=== PATIENT | male | born 1955 | race Caucasian/White ===

== ENCOUNTER → 2017-01-21 | Outpatient (CLI) | payer BC | LOC: FCPNEURO 20:00 | PROVIDERS: ATTEND Psychiatry & Neurology Sleep Medicine | DX: G47.33 Obstructive sleep apnea (adult) (pediatric) (principal); G47.61 Periodic limb movement disorder ==

== ENCOUNTER 2017-09-10 10:54 | Emergency (ER) | payer BC ==
[2017-09-10 11:00] VITALS: TEMP 98.4
--- NOTE | 2017-09-10 11:24 | CPEKG ---
Heart Rate: 68 RR Interval: 882 P-R Interval: 172 QRSD Interval: 92 QT Interval: 392 QTC Interval: 417 P Florence: 30 QRS Florence: -19 T Wave Florence: 37 EKG Severity - OTHERWISE NORMAL ECG - EKG Impression: SINUS RHYTHM EKG Impression: BORDERLINE LEFT AXIS DEVIATION Electronically Signed By: Yasmin Renee 10-Sep-2017 14:18:12
[2017-09-10] MEDS ORDERED: NS 500 ML IV ONE (11:39)
[2017-09-10 11:49] LABS: PLATELET COUNT 228 10^3/uL (150-400)
[2017-09-10 11:51] LABS: CREATINE KINASE 266 IU/L (0-224)
[2017-09-10 12:19] LABS: INR 1.06 (0.83-1.16)
--- NOTE | 2017-09-10 12:42 | EDPHY ---
H & P Time Seen by Provider: 09/10/17 11:39 HPI/ROS: HPI Fatigue, lethargy. 62-year-old male by private vehicle with family. This patient reports that he has chronic knee pain and has had a knee replacement. For this he takes a long- acting narcotic pain medication called Nucynta. He reports that he had some knee pain last night. He took a Nucynta last night at approximately 5:30 p.m.. He reports that he woke this morning and felt more fatigued than usual. He reports that he went to work. He took 2 Aleve at 11:00 a.m.. He reports that since this time he is felt very fatigued and foggy in his head which she describes as slow thinking. He denies any other associated signs or symptoms. ROS: Constitutional: No fever, no chills. As above. Eyes: No changes in vision. ENT: No sore throat. No nasal congestion or rhinorrhea. Respiratory: No cough. No shortness of breath. Cardiac: No chest pain, no palpitations. Gastrointestinal: No abdominal pain, no vomiting, no diarrhea. Genitourinary: No hematuria. No dysuria or increased frequency with urination. Musculoskeletal: No back pain. No neck pain. No myalgias or arthralgias. Skin: No rashes. Neurological: No headache. No focal weakness or altered sensation. Past medical history: Bronchitis, lower extremity edema, COPD, osteoarthritis, left knee replacement, cholecystectomy, chronic leg pain. Social history: Former smoker. Denies alcohol. Here with family. As above. Physical Exam: General Appearance: Alert, no distress. Moderately obese. This patient is responding to questions appropriately and in full sentences. This patient appears well-hydrated and well-nourished. Eyes: Pupils equal and round no pallor or injection. No lid edema, erythema or injection. ENT, Mouth: Mucous membranes are moist. The pharyngeal tissues are unremarkable. No edema or swelling. No asymmetry suggestive of abscess. No erythema or exudates. Respiratory: There are no retractions, lungs are clear to auscultation with good air movement bilaterally. No tachypnea. Cardiovascular: Regular rate and rhythm. No murmur. Gastrointestinal: Obese habitus. Abdomen is soft and nontender, no masses, bowel sounds normal. No focal tenderness at McBurney's point. No Kim sign. Neurological: Motor sensory function is grossly intact. Cranial nerves are normal. Gait is normal. Skin: Warm and dry, no rashes. Musculoskeletal: Neck is supple and nontender. No pain on flexion of his neck. Extremities are symmetrical. All joints range without pain or impingement. Psychiatric: No agitation. No depression. Database: EKG: EKG time is 11:17 a.m.; EKG shows a narrow complex normal sinus rhythm with a ventricular rate of 68. The NM, QRS, QT intervals are within normal limits. There are no ST-T wave changes indicative of ischemic or injury pattern. No evidence of right heart strain. Interpreted by me. Imaging: Chest x-ray PA and lateral; the cardiac mediastinal silhouette is unremarkable. Grossly stable reticular nodular opacities. No evidence of infiltrate or pneumothorax. No acute cardiopulmonary disease process noted. Interpreted by me. Procedures: Emergency department course: Vital signs reviewed and are normal. Patient is afebrile. EKG obtained and reviewed by myself. 2:00 p.m., patient re-evaluated. Resting comfortably at this time. States he feels better. His emergency department workup has been unremarkable. I reviewed the differential with him and his family. At this time I feel that he most likely had a medication reaction to his long-acting opiate pain medication. I also asked him was possible he took 1 dose for got that he took it and then took another dose. He said that this was a possibility. He has been up and ambulatory to the bathroom without difficulty and with a normal gait. He does feel comfortable going home with his family at this time. I feel he is safe for discharge. I stressed the importance of returning to the emergency department immediately if his symptoms return or he has any serious concerns. I discussed follow-up with his primary care physician. All of his questions were answered. He was discharged in good condition. Differential Diagnosis: The differential diagnosis on this patient includes but is not limited to medication reaction to long-acting narcotic pain medication, viral syndrome, influenza. Congestive heart failure exacerbation, acute coronary syndrome, CVA unlikely. This represents a partial list of diagnoses considered. These considerations are based on history, physical exam, past history, reassessment and diagnostic testing. Smoking Status: Former smoker Constitutional: Initial Vital Signs Temperature (C) 36.9 C 09/10/17 10:56 Heart Rate 84 09/10/17 10:56 Respiratory Rate 18 09/10/17 10:56 Blood Pressure 134/88 H 09/10/17 10:56 O2 Sat (%) 97 09/10/17 10:56 O2 Delivery Mode Room Air Allergies/Adverse Reactions: codeine [Codeine] Allergy (Mild, Verified 09/10/17 10:56) hydrocodone [Hydrocodone] Allergy (Verified 09/10/17 10:56) morphine [Morphine] Allergy (Verified 09/10/17 10:56) oxycodone [Oxycodone] Allergy (Verified 09/10/17 10:56) Home Medications: Medication Instructions Recorded Tapentadol HCl [Nucynta 50 MG (RX)] 50 mg PO Q4-6PRN PRN #20 tab 08/28/14 Medical Decision Making - Diagnostics Imaging Results: Imaging Impressions Chest X-Ray 09/10/17 11:40 Impression: 1. No acute findings in the chest. 2. Grossly stable reticular nodular opacities, with limited assessment of nodules seen better on the comparison CT chest. 3. Additional findings as above. - Data Points Laboratory Results: Laboratory Results 09/10/17 11:18 09/10/17 11:18 09/10/17 09/10/17 09/10/17 13:25 12:40 12:00 WBC RBC Hgb Hct MCV MCH MCHC RDW Plt Count MPV Neut % (Auto) Lymph % (Auto) [place] % (Auto) Eos % (Auto) Baso % (Auto) Nucleat RBC Rel Count Absolute Neuts (auto) Absolute Lymphs (auto) Absolute Monos (auto) Absolute Eos (auto) Absolute Basos (auto) Absolute Nucleated RBC Immature Gran % Immature Gran # PT 14.0 SEC SEC (12.0-15.0) INR 1.06 (0.83-1.16) APTT 28.7 SEC SEC (23.0-38.0) D-Dimer 0.38 ug/mLFEU ug/mLFEU (0.00-0.50) Carboxyhemoglobin 2.0 % H % (0-1.5) Sodium Potassium Chloride Carbon Dioxide Anion Gap BUN Creatinine Estimated GFR Glucose Calcium Creatine Kinase CK-MB (CK-2) Fraction CK-MB (CK-2) % Creatine Kinase Interp Troponin I NT-Pro-B Natriuret Pep Nasal Influenza A PCR NEGATIVE FOR FLU A (NEGATIVE) Nasal Influenza B PCR NEGATIVE FOR FLU B (NEGATIVE) 09/10/17 09/10/17 11:18 11:18 WBC 6.54 10^3/uL 10^3/uL (3.80-9.50) RBC 4.95 10^6/uL 10^6/uL (4.40-6.38) Hgb 14.3 g/dL g/dL (13.7-17.5) Hct 41.6 % % (40.0-51.0) MCV 84.0 fL fL (81.5-99.8) MCH 28.9 pg pg (27.9-34.1) MCHC 34.4 g/dL g/dL (32.4-36.7) RDW 13.6 % % (11.5-15.2) Plt Count 228 10^3/uL 10^3/uL (150-400) MPV 8.2 fL L fL (8.7-11.7) Neut % (Auto) 66.5 % % (39.3-74.2) Lymph % (Auto) 17.4 % % (15.0-45.0) [place] % (Auto) 12.2 % % (4.5-13.0) Eos % (Auto) 3.1 % % (0.6-7.6) Baso % (Auto) 0.5 % % (0.3-1.7) Nucleat RBC Rel Count 0.0 % % (0.0-0.2) Absolute Neuts (auto) 4.35 10^3/uL 10^3/uL (1.70-6.50) Absolute Lymphs (auto) 1.14 10^3/uL 10^3/uL (1.00-3.00) Absolute Monos (auto) 0.80 10^3/uL 10^3/uL (0.30-0.80) Absolute Eos (auto) 0.20 10^3/uL 10^3/uL (0.03-0.40) Absolute Basos (auto) 0.03 10^3/uL 10^3/uL (0.02-0.10) Absolute Nucleated RBC 0.00 10^3/uL 10^3/uL (0-0.01) Immature Gran % 0.3 % % (0.0-1.1) Immature Gran # 0.02 10^3/uL 10^3/uL (0.00-0.10) PT INR APTT D-Dimer Carboxyhemoglobin Sodium 142 mEq/L mEq/L (135-145) Potassium 4.4 mEq/L mEq/L (3.5-5.2) Chloride 102 mEq/L mEq/L (97-110) Carbon Dioxide 26 mEq/l mEq/l (22-31) Anion Gap 14 mEq/L mEq/L (8-16) BUN 15 mg/dL mg/dL (7-23) Creatinine 1.2 mg/dL mg/dL (0.7-1.3) Estimated GFR > 60 Glucose 94 mg/dL mg/dL (70-100) Calcium 10.5 mg/dL H mg/dL (8.5-10.4) Creatine Kinase 266 IU/L H IU/L (0-224) CK-MB (CK-2) Fraction 2.63 ng/mL ng/mL (0.00-3.19) CK-MB (CK-2) % 1.0 % % (0.0-4.0) Creatine Kinase Interp NEGATIVE (NEGATIVE) Troponin I < 0.012 ng/mL ng/mL (0.000-0.034) NT-Pro-B Natriuret Pep 46 pg/mL pg/mL (0-125) Nasal Influenza A PCR Nasal Influenza B PCR Medications Given: Discontinued Medications Sodium Chloride (Ns) 500 mls @ 1,000 mls/hr IV EDNOW ONE PRN Reason: Protocol Stop: 09/10/17 12:08 Last Admin: 09/10/17 12:03 Dose: 500 mls Departure - Departure Disposition: Home, Routine, Self-Care Clinical Impression: Fatigue, Possible medication reaction Condition: Good Instructions: Narcotic Pain Management (ED), Fatigue (ED) Additional Instructions: Read and follow provided instructions. Follow-up with your primary care physician within 1-2 days for re-evaluation as discussed. Take your medication as prescribed. Return to the emergency department immediately for worsening symptoms, worsening fatigue, headache, loss of sensation or weakness in your extremities, fever, difficulty breathing or other serious concerns. Referrals: Vicente Tovar, [Primary Care Provider] - As per Instructions
[2017-09-10 14:30] VITALS: BP 131/89; PULSE 77; RESP 16; O2SAT 94
== END 2017-09-10 14:33 | disposition home or self-care (01) ==
DX: R53.83 Other fatigue (principal); J44.9 Chronic obstructive pulmonary disease, unspecified; E86.9 Volume depletion, unspecified; Z87.891 Personal history of nicotine dependence

== ENCOUNTER 2018-01-06 13:21 | Emergency (ER) | payer BC ==
[2018-01-06] MEDS ORDERED: methylPREDNISolone SOD SUCC 125 MG/2 ML VIAL IVP ONE (15:02)
[2018-01-06] MEDS ORDERED: DIAZEPAM 5 MG/ML 1 ML SYR IVP ONE (15:02)
--- NOTE | 2018-01-06 15:06 | EDPHY ---
H & P Stated Complaint: months of chronic back pain/increasing lately/missing work Time Seen by Provider: 01/06/18 14:56 HPI/ROS: CHIEF COMPLAINT: Low back pain HISTORY OF PRESENT ILLNESS: The patient is a 62-year-old obese man who comes to the emergency department complaining of progressively worse low back pain over the last month. He states that he is now missing work. He states that he has numbness in his feet if he sits too long and that improves when he stands up and walks. He points to his lower thoracic/upper lumbar spine as the area of pain. He states that he has chronic back problems but he felt a pop about a month ago and has had severe pain ever since. He presented to his primary Dr. Tovar who recommended acupuncture but he has not been able to do so yet. He has been taking Aleve at home with moderate improvement. No fevers. REVIEW OF SYSTEMS: Constitutional: denies: chills, fever, recent illness, recent injury EENTM: denies: blurred vision, double vision, nose congestion Respiratory: denies: cough, shortness of breath Cardiac: denies: chest pain, irregular heart rate, lightheadedness, palpitations Gastrointestinal/Abdominal: denies: abdominal pain, diarrhea, nausea, vomiting, blood streaked stools Genitourinary: denies: dysuria, frequency, hematuria, pain Musculoskeletal: denies: joint pain, muscle pain Skin: denies: lesions, rash, jaundice, bruising Neurological: denies: headache, numbness, paresthesia, tingling, dizziness, weakness Hematologic/Lymphatic: denies: blood clots, easy bleeding, easy bruising Immunologic/allergic: denies: HIV/AIDS, transplant EXAM: GENERAL: Well-appearing, well-nourished and in no acute distress. HEAD: Atraumatic, normocephalic. EYES: Pupils equal round and reactive to light, extraocular movements intact, sclera anicteric, conjunctiva are normal. ENT: TMs normal, nares patent, oropharynx clear without exudates. Moist mucous membranes. NECK: Normal range of motion, supple without lymphadenopathy or JVD. LUNGS: Breath sounds clear to auscultation bilaterally and equal. No wheezes rales or rhonchi. HEART: Regular rate and rhythm without murmurs, rubs or gallops. ABDOMEN: Soft, nontender, normoactive bowel sounds. No guarding, no rebound. No masses appreciated. BACK: Lower thoracic, upper lumbar pain and tenderness, no deformities or step- offs. No CVA tenderness, EXTREMITIES: Normal range of motion, no pitting or edema. No clubbing or cyanosis. Normal pulses NEUROLOGICAL: Cranial nerves II through XII grossly intact. Normal speech, normal gait. 5/5 strength, normal movement in all extremities, normal sensation when objectively tested. Complains of numbness in his feet when sitting too long. PSYCH: Normal mood, normal affect. SKIN: Warm, dry, normal turgor, no visible rashes or lesions. Source: Patient Exam Limitations: No limitations - Personal History Current Tetanus/Diphtheria Vaccine: Yes - Medical/Surgical History Hx Asthma: No Hx Chronic Respiratory Disease: Yes Hx Diabetes: No Hx Cardiac Disease: No Hx Renal Disease: No Hx Cirrhosis: No Hx Alcoholism: No Hx HIV/AIDS: No Hx Splenectomy or Spleen Trauma: No Other PMH: bronchitis, edema, COPD,JIMENA. left knee replacement, fariha. chronic leg pain. back problems - Family History Significant Family History: No pertinent family hx - Social History Smoking Status: Former smoker Alcohol Use: Sober Drug Use: None Constitutional: Initial Vital Signs Temperature (C) 37 C 01/06/18 13:26 Heart Rate 79 01/06/18 13:26 Respiratory Rate 18 01/06/18 13:26 Blood Pressure 152/86 H 01/06/18 13:26 O2 Sat (%) 99 01/06/18 13:26 O2 Delivery Mode Room Air Allergies/Adverse Reactions: codeine [Codeine] Allergy (Mild, Verified 01/06/18 13:25) hydrocodone [Hydrocodone] Allergy (Verified 01/06/18 13:25) morphine [Morphine] Allergy (Verified 01/06/18 13:25) oxycodone [Oxycodone] Allergy (Verified 01/06/18 13:25) Home Medications: Medication Instructions Recorded Tapentadol HCl [Nucynta 50 MG (RX)] 50 mg PO Q4-6PRN PRN #20 tab 08/28/14 Aleve 01/06/18 Diazepam [Valium 5 MG (*)] 5 mg PO TID PRN #15 tab 01/06/18 methylPREDNISolone [Medrol Dose 1 each PO AD #1 ea 01/06/18 Campos] Medical Decision Making - Diagnostics Imaging: Discussed imaging studies w/ bilingual call center representative Radiologist ED Course/Re-evaluation: 5:50 p.m. we discussed the MRI results. The patient is relieved. He is feeling much better after Valium. I will discharge him with a Solu-Medrol pack and p.r.n. Valium. He is also asking for a note for work. We will refer him to back specialist. Differential Diagnosis: Partial list of the Differential diagnosis considered include but were not limited to; muscle strain, radiculopathy, degenerative disc disease and although unlikely based on the history and physical exam, I also considered cord compression, infection, hematoma, transverse myelitis. I discussed these differential diagnoses and the plan with the patient as well as the usual and expected course. The patient understands that the diagnosis is provisional and that in medicine we are not always correct and that further workup is often warranted. Usual and customary warnings were given. All of the patient's questions were answered. The patient was instructed to return to the emergency department should the symptoms at all worsen or return, otherwise to followup with the physician as we discussed. - Data Points Medications Given: Discontinued Medications Diazepam (Valium) 5 mg IVP EDNOW ONE Stop: 01/06/18 15:03 Last Admin: 01/06/18 15:12 Dose: 5 mg Methylprednisolone Sodium Succinate (Solu-Medrol) 125 mg IVP EDNOW ONE Stop: 01/06/18 15:03 Last Admin: 01/06/18 15:12 Dose: 125 mg Departure - Departure Disposition: Home, Routine, Self-Care Clinical Impression: Low back pain Qualifiers: Chronicity: acute Back pain laterality: midline Sciatica presence: without sciatica Qualified Code(s): M54.5 - Low back pain Condition: Fair Instructions: Acute Low Back Pain (ED) Referrals: Vicente Tovar DO [Primary Care Provider] - As per Instructions Migel Basurto MD [Medical Doctor] - As per Instructions Stand Alone Forms: Work Excuse Prescriptions: Diazepam [Valium 5 MG (*)] 5 mg PO TID PRN #15 tab PRN Reason: Spasms methylPREDNISolone [Medrol Dose Campos] 1 each PO AD #1 ea
[2018-01-06 18:04] VITALS: BP 130/82
== END 2018-01-06 18:31 | disposition home or self-care (01) ==
DX: M54.5 Low back pain (principal); J44.9 Chronic obstructive pulmonary disease, unspecified; Z87.891 Personal history of nicotine dependence
CPT/HCPCS: 96374; J2930; J3360

== ENCOUNTER 2018-04-22 11:50 | Emergency (ER) | payer BC ==
[2018-04-22 12:11] LABS: PLATELET COUNT 230 10^3/uL (150-400)
--- NOTE | 2018-04-22 12:15 | EDPHY ---
H & P Time Seen by Provider: 04/22/18 11:52 HPI/ROS: HPI Shortness of breath. COPD. 63-year-old male by ambulance from work. The patient reports that he was at work and developed shortness of breath about 2 hr prior to arrival. He states this is typical of his previous COPD exacerbations. He reports that he took 2 hits from his ProAir without relief. He then called the ambulance. An IV was established by EMS and he was given 125 mg of Solu-Medrol and a DuoNeb treatment. He reports that after this he felt much better and on arrival to the emergency department now, he states that he is breathing"normal". He denies cough. No fever. Denies chest pain. No other complaints. ROS: Constitutional: No fever, no chills. No weakness. Eyes: No discharge. No changes in vision. ENT: No sore throat. No nasal congestion or rhinorrhea. Respiratory: No cough. As above. Cardiac: No chest pain, no palpitations. Gastrointestinal: No abdominal pain, no vomiting, no diarrhea. Skin: No rashes. Neurological: No headache. No focal weakness or altered sensation. Past medical history: Chronic bronchitis, COPD, lower extremity edema, osteoarthritis, left knee replacement, cholecystectomy, chronic bilateral leg pain. Social history: Former smoker. Denies alcohol. Here by himself. Physical Exam: General Appearance: Alert, no distress. This patient is responding to questions appropriately and in full sentences. This patient appears well- hydrated and well-nourished. Eyes: Pupils equal and round no pallor or injection. No lid edema, erythema or injection. Respiratory: There are no retractions, lungs are clear to auscultation bilaterally with good air movement bilaterally. No tachypnea. Cardiovascular: Regular rate and rhythm. No murmur. Gastrointestinal: Abdomen is soft and nontender, no masses, bowel sounds normal. No focal tenderness at McBurney's point. No Kim sign. Neurological: Motor sensory function is grossly intact. Cranial nerves are normal. Gait is normal. Skin: Warm and dry, no rashes. Musculoskeletal: Neck is supple and nontender. Symmetrical lower extremity edema which is chronic. All joints range without pain or impingement. Psychiatric: No agitation. No depression. Database: EKG: EKG time is 12:04 p.m.; EKG shows a narrow complex normal sinus rhythm with a ventricular rate of 82. Borderline left axis deviation. The TN, QRS, QT intervals are within normal limits. There are no ST-T wave changes indicative of ischemic or injury pattern. No evidence of right heart strain. Interpreted by me. Imaging: Procedures: Emergency department course: Triage vital signs reviewed. Room air pulse oximetry at this time is 94%. He is afebrile. Vital signs are otherwise within normal limits. He is declining another breathing treatment. He received 125 mg of IV Solu-Medrol by EMS EKG obtained and reviewed by myself. Plan will be to observe the patient and then reassess on further management. His presentation is consistent with a typical exacerbation of his COPD. 1:00 p.m., the patient was re-evaluated. He stating that he is starting to feel short of breath again. He also reports that he has had intermittent episodes of forgetfulness where he suddenly does not know where he is. He reports that these have been going on for some time, at least a year but have been more frequent lately. There has been no history of seizure activity. He denies any loss of sensation or weakness in his extremities. No headache. No other associated complaints. He will be given albuterol/Atrovent nebulizer treatment. 2:20 p.m., patient feeling much better. Room air pulse oximetry 94-95%. His lungs are clear on auscultation bilaterally. No tachypnea. I feel that his momentary lapses of clear mental status are likely secondary to dementia. He states they have been going on for at least a year maybe 2 years now. I will have him follow up with his primary care physician Dr. Tovar for re- evaluation and further management regarding this issue. I will prescribe him a short course of prednisone. He feels comfortable with this plan as does his son who is in the room. Return to emergency department precautions were thoroughly discussed with both of them. All of their questions were answered. The patient was discharged home in good condition with his son. Differential Diagnosis: The differential diagnosis on this patient includes but is not limited to COPD exacerbation. Congestive heart failure exacerbation, pneumothorax, pneumonia, acute coronary syndrome unlikely. This represents a partial list of diagnoses considered. These considerations are based on history, physical exam, past history, reassessment and diagnostic testing. Smoking Status: Former smoker Constitutional: Initial Vital Signs Temperature (C) 36.6 C 04/22/18 11:56 Heart Rate 91 04/22/18 11:56 Respiratory Rate 13 04/22/18 11:56 Blood Pressure 130/92 H 04/22/18 11:56 O2 Sat (%) 93 04/22/18 11:56 O2 Delivery Mode Room Air Allergies/Adverse Reactions: codeine [Codeine] Allergy (Mild, Verified 01/06/18 13:25) hydrocodone [Hydrocodone] Allergy (Verified 01/06/18 13:25) morphine [Morphine] Allergy (Verified 01/06/18 13:25) oxycodone [Oxycodone] Allergy (Verified 01/06/18 13:25) Home Medications: Medication Instructions Recorded Aleve 01/06/18 Albuterol Sulfate 04/22/18 Asmanex Inh (*) 04/22/18 Aspirin [Aspirin 81mg (*)] 04/22/18 Atorvastatin Calcium 04/22/18 Calcium 04/22/18 DULoxetine 04/22/18 Gabapentin 04/22/18 Iron 04/22/18 Magnesium 04/22/18 Nucynta 04/22/18 Proair Hfa 04/22/18 Tamsulosin HCl 04/22/18 predniSONE [prednisone 20mg (RX)] 60 mg PO DAILY #12 tab 04/22/18 Medical Decision Making - Data Points Laboratory Results: Laboratory Results 04/22/18 11:45 04/22/18 11:45 04/22/18 04/22/18 11:45 11:45 WBC 8.40 10^3/uL 10^3/uL (3.80-9.50) RBC 5.33 10^6/uL 10^6/uL (4.40-6.38) Hgb 16.2 g/dL g/dL (13.7-17.5) Hct 47.4 % % (40.0-51.0) MCV 88.9 fL fL (81.5-99.8) MCH 30.4 pg pg (27.9-34.1) MCHC 34.2 g/dL g/dL (32.4-36.7) RDW 13.0 % % (11.5-15.2) Plt Count 230 10^3/uL 10^3/uL (150-400) MPV 8.3 fL L fL (8.7-11.7) Neut % (Auto) 70.4 % % (39.3-74.2) Lymph % (Auto) 18.6 % % (15.0-45.0) [place] % (Auto) 8.1 % % (4.5-13.0) Eos % (Auto) 2.3 % % (0.6-7.6) Baso % (Auto) 0.4 % % (0.3-1.7) Nucleat RBC Rel Count 0.0 % % (0.0-0.2) Absolute Neuts (auto) 5.92 10^3/uL 10^3/uL (1.70-6.50) Absolute Lymphs (auto) 1.56 10^3/uL 10^3/uL (1.00-3.00) Absolute Monos (auto) 0.68 10^3/uL 10^3/uL (0.30-0.80) Absolute Eos (auto) 0.19 10^3/uL 10^3/uL (0.03-0.40) Absolute Basos (auto) 0.03 10^3/uL 10^3/uL (0.02-0.10) Absolute Nucleated RBC 0.00 10^3/uL 10^3/uL (0-0.01) Immature Gran % 0.2 % % (0.0-1.1) Immature Gran # 0.02 10^3/uL 10^3/uL (0.00-0.10) Sodium 139 mEq/L mEq/L (135-145) Potassium 4.1 mEq/L mEq/L (3.3-5.0) Chloride 103 mEq/L mEq/L (97-110) Carbon Dioxide 26 mEq/l mEq/l (22-31) Anion Gap 10 mEq/L mEq/L (8-16) BUN 12 mg/dL mg/dL (7-23) Creatinine 1.0 mg/dL mg/dL (0.7-1.3) Estimated GFR > 60 Glucose 95 mg/dL mg/dL (70-100) Calcium 10.7 mg/dL H mg/dL (8.5-10.4) Phosphorus 2.9 mg/dL mg/dL (2.5-4.5) Medications Given: Discontinued Medications Albuterol/Ipratropium (Duoneb) 6 ml IH EDNOW ONE Stop: 04/22/18 13:12 Last Admin: 04/22/18 13:20 Dose: 6 ml Departure - Departure Disposition: Home, Routine, Self-Care Clinical Impression: Chronic obstructive pulmonary disease with acute exacerbation Condition: Good Instructions: COPD (Chronic Obstructive Pulmonary Disease) (ED) Additional Instructions: Read and follow provided instructions. Follow-up with your primary care physician within the next 5 days for re- evaluation of your COPD and discussion of your momentary lapses of memory. Explained this is for an emergency department follow-up. Take prednisone medication as prescribed for you're COPD. Continued to use your ProAir as prescribed. Return to the emergency department for worsening symptoms or other serious concerns. Referrals: Patient,NotPresent [Unknown] - As per Instructions Prescriptions: predniSONE [prednisone 20mg (RX)] 60 mg PO DAILY #12 tab
--- NOTE | 2018-04-22 12:18 | CPEKG ---
Test Reason : OPEN Blood Pressure : / mmHG Vent. Rate : 082 BPM Atrial Rate : 082 BPM P-R Int : 161 ms QRS Dur : 094 ms QT Int : 377 ms P-R-T Axes : 016 -26 038 degrees QTc Int : 441 ms Sinus rhythm Borderline left axis deviation Abnormal R-wave progression, early transition Confirmed by Yasmin Renee ([id number] on 04/22/2018 12:17:20 PM Referred By: Confirmed By:Yasmin Renee
[2018-04-22] MEDS ORDERED: IPRATROPIUM/ALBUTEROL 3 ML DEYVIAL IH ONE (13:11)
[2018-04-22 14:30] VITALS: BP 125/85
== END 2018-04-22 14:33 | disposition home or self-care (01) ==
LOC: EDUNIT#
DX: J44.1 Chronic obstructive pulmonary disease with (acute) exacerbation (principal); Z87.891 Personal history of nicotine dependence

== ENCOUNTER → 2018-10-08 | Outpatient (CLI) | payer BC | LOC: CIMAGING 10:23 | PROVIDERS: ATTEND Internal Medicine Pulmonary Disease | DX: R91.1 Solitary pulmonary nodule (principal); R91.8 Other nonspecific abnormal finding of lung field | CPT/HCPCS: 71250-PO ==